=== PATIENT | female | born 1975 | race Caucasian/White ===

== ENCOUNTER → 2022-07-08 15:23 | Outpatient (BNVA) | payer BC, SELFPAY | PROVIDERS: Family Provider Family Medicine; Visit Provider Nurse Practitioner Family | DX: Z51.81 Encounter for therapeutic drug level monitoring (principal); E03.9 Hypothyroidism, unspecified; Z13.6 Encounter for screening for cardiovascular disorders; F19.91 Other psychoactive substance use, unspecified, in remission; E53.8 Deficiency of other specified B group vitamins; E55.9 Vitamin D deficiency, unspecified | CPT/HCPCS: 80053; 80061; 80307; 82306; 82607; 82746; 84443; 85025 ==

== ENCOUNTER → 2023-02-24 16:54 | Outpatient (BNVA) | payer BC, SELFPAY | PROVIDERS: Family Provider Family Medicine; PCP Nurse Practitioner Family; Visit Provider Nurse Practitioner Family | DX: M25.612 Stiffness of left shoulder, not elsewhere classified (principal); M25.519 Pain in unspecified shoulder | CPT/HCPCS: 73030 ==